=== PATIENT | male | born 1975 | race Caucasian/White ===

== ENCOUNTER 2020-09-04 11:25 | Outpatient (CLI) | payer OTHER, SELFPAY ==
--- NOTE | 2020-09-05 12:25 | WPDPFTINT ---
PFT Interpretation PFT Interpretation: This PFT met all criteria for ATS standards and reproducibility FEV/FVC post bronchodilator 67% FEV1 73% or 3.09 liters FVC 82% or 4.63 liters No bronchodilator challenge was given TLC 92% RV 113% RV/TLC 36% DLCO 95% when adjusted for alveolar volume but not adjusted for hemoglobin Flow volume loops were normal Impression: Moderate air flow obstruction. No bronchodilator challenge was given which limits the interpretability of the study. Clinical correlation is advised.
== END 2020-09-04 11:26 | disposition home or self-care (01) ==
LOC: ANHPFT 11:26
PROVIDERS: PCP Internal Medicine; Visit Provider Internal Medicine
DX: R06.00 Dyspnea, unspecified (principal)
CPT/HCPCS: 94375; 94726; 94729

== ENCOUNTER 2022-04-04 11:54 | Outpatient (CLI) | payer OTHER, SELFPAY ==
[2022-04-04 12:06] LABS: Hemoglobin 15.7 g/dL (14.0-18.0)
== END 2022-04-04 11:55 | disposition home or self-care (01) ==
LOC: ANHLAB 11:55
PROVIDERS: PCP Internal Medicine; Visit Provider Nurse Practitioner Adult Health
DX: E29.1 Testicular hypofunction (principal)
CPT/HCPCS: 36415; 85014; 85018

== ENCOUNTER 2022-05-16 09:31 | Outpatient (CLI) | payer OTHER, SELFPAY ==
[2022-05-16 09:56] LABS: Hematocrit 44.2 % (42.0-52.0); Hemoglobin 14.7 g/dL (14.0-18.0)
[2022-05-20 10:02] LABS: Testosterone Total 171 ng/dL (250-1100)
[2022-05-22 22:57] LABS: Estradiol, Ultrasensitive 23 pg/mL (< OR = 29)
== END 2022-05-16 09:32 | disposition home or self-care (01) ==
PROVIDERS: PCP Internal Medicine; Visit Provider Nurse Practitioner Adult Health
DX: E29.1 Testicular hypofunction (principal)
CPT/HCPCS: 36415; 82670; 84403; 85014; 85018

== ENCOUNTER 2022-10-08 10:06 | Outpatient (CLI) | payer OTHER, SELFPAY ==
[2022-10-08 10:32] LABS: Hematocrit 46.6 % (42.0-52.0); Hemoglobin 15.4 g/dL (14.0-18.0)
[2022-10-13 12:34] LABS: Testosterone Total 20 ng/dL (250-1100)
[2022-10-15 21:41] LABS: Estradiol, Ultrasensitive 11 pg/mL (< OR = 29)
== END 2022-10-08 10:07 | disposition home or self-care (01) ==
LOC: ANHLAB 10:10
PROVIDERS: PCP Internal Medicine; Visit Provider Nurse Practitioner Adult Health
DX: E29.1 Testicular hypofunction (principal)
CPT/HCPCS: 36415; 82670; 84403; 85014; 85018

== ENCOUNTER 2023-02-06 08:53 | Outpatient (CLI) | payer OTHER, SELFPAY ==
[2023-02-06 10:50] LABS: Hematocrit 50.4 % (42.0-52.0); Hemoglobin 16.7 g/dL (14.0-18.0)
[2023-02-06 11:30] LABS: Prostate Specific Antigen 0.9 ng/mL (< OR = 4.0)
[2023-02-11 12:51] LABS: Testosterone Total 75 ng/dL (250-1100)
[2023-02-12 22:27] LABS: Estradiol, Ultrasensitive 32 pg/mL (< OR = 29)
== END 2023-02-06 08:54 | disposition home or self-care (01) ==
LOC: ANHLAB 08:56
PROVIDERS: PCP Internal Medicine; Visit Provider Nurse Practitioner Adult Health
DX: E29.1 Testicular hypofunction (principal)
CPT/HCPCS: 36415; 82670; 84153; 84403; 85014; 85018

== ENCOUNTER 2023-04-14 15:57 | Outpatient (CLI) | payer OTHER, SELFPAY ==
[2023-04-14 16:35] LABS: Hematocrit 44.9 % (42.0-52.0); Hemoglobin 14.7 g/dL (14.0-18.0)
[2023-04-17 12:53] LABS: Testosterone Total 889 ng/dL (250-1100)
[2023-04-21 20:42] LABS: Estradiol, Ultrasensitive 75 pg/mL (< OR = 29)
== END 2023-04-14 15:58 | disposition home or self-care (01) ==
LOC: ANHLAB 15:59
PROVIDERS: PCP Internal Medicine; Visit Provider Nurse Practitioner Adult Health
DX: E29.1 Testicular hypofunction (principal)
CPT/HCPCS: 36415; 82670; 84403; 85014; 85018